=== PATIENT | male | born 1965 | race Hispanic/Latino ===

== ENCOUNTER 2017-02-25 18:57 | Emergency (ER) | payer OTHER ==
[2017-02-25] MEDS ORDERED: D50W (25GM) Vial 50 ML IV ONE (19:53)
[2017-02-25 20:41] LABS: Basophils % (Auto) 1.1 % (0.0-1.8); Eosinophils % (Auto) 4.7 % (0.0-4.3); Hematocrit 44.5 % (35.5-45.6); Hemoglobin 14.7 gm/dl (11.8-15.2); Mean Corpuscular HGB Conc 33 % (32-34); Mean Corpuscular Hemoglobin 30 pg (28-32); Mean Corpuscular Volume 92 fl (84-94); Platelet Count 195 K/mm3 (140-440); Red Blood Count 4.86 M/mm3 (3.65-5.03); Red Cell Distribution Width 14.8 % (13.2-15.2); White Blood Count 11.7 K/mm3 (4.5-11.0)
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
[2017-02-25 21:00] LABS: Calcium 8.6 mg/dL (8.4-10.2); Chloride 90.4 mmol/L (98-107); Potassium 3.9 mmol/L (3.6-5.0)
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
[2017-02-25 22:24] LABS: Bilirubin,Urine NEG (Negative); Blood,Urine NEG (Negative); Ketones,Urine NEG (Negative); Leukocyte Esterase,Urine NEG (Negative); Mucus,Urine FEW /HPF; Nitrite,Urine NEG (Negative); Urobilinogen,Urine < 2.0 mg/dL (<2.0); WBC,Urine < 1.0 /HPF (0.0-6.0)
[2017-02-25 22:26] LABS: Protein,Urine >500 mg/dL (Negative)
[2017-02-26 00:12] VITALS: BP 105/45
== END 2017-02-25 23:45 | disposition home or self-care (01) ==
LOC: ED 18:57
DX: E11.649 Type 2 diabetes mellitus with hypoglycemia without coma (principal); R42 Dizziness and giddiness; R53.1 Weakness; R55 Syncope and collapse
CPT/HCPCS: 36415; 70450; 80048; 81001; 82962; 85025